=== PATIENT | female | born 1980 | race Caucasian/White ===

== ENCOUNTER 2017-11-16 05:38 | Day surgery (SDC) | payer OTHER ==
[2017-11-16] MEDS ORDERED: LACTATED RINGER'S 1,000 ML IV* (06:00)
[2017-11-16] MEDS ORDERED: CEFAZOLIN 2 GM/50 ML (PMX) 50 ML IVPB (06:00)
[2017-11-16] MEDS ORDERED: LIDOCAINE 2% (SDV) 5 ML INJ (07:32)
[2017-11-16] MEDS ORDERED: MEPERIDINE 100 MG INJ (07:32)
[2017-11-16] MEDS ORDERED: ONDANSETRON 4 MG INJ (07:32)
[2017-11-16] MEDS ORDERED: CEFAZOLIN 1 GM INJ (07:32)
[2017-11-16] MEDS ORDERED: PROPOFOL 20 ML (07:32)
[2017-11-16] MEDS ORDERED: METOCLOPRAMIDE 10 MG INJ (07:33)
[2017-11-16] MEDS ORDERED: FENTAnyl 50 MCG/ML VIAL (09:17)
[2017-11-16] MEDS: FENTAnyl 50 MCG/ML VIAL IV (09:20)
[2017-11-16] MEDS ORDERED: ONDANSETRON 4 MG INJ IV (09:30)
[2017-11-16] MEDS ORDERED: FENTAnyl 50 MCG/ML VIAL IV ×2 (09:30)
[2017-11-16] MEDS ORDERED: MIDAZOLAM 1 MG/ML 2 ML INJ IV (09:30)
[2017-11-16] MEDS ORDERED: METOCLOPRAMIDE 10 MG INJ IV (09:30)
[2017-11-16] MEDS ORDERED: MEPERIDINE 25 MG INJ IV (09:30)
[2017-11-16] MEDS ORDERED: hydrALAzine 20 MG INJ IV (09:30)
[2017-11-16] MEDS ORDERED: OXYCODONE/ACETAMINOPHEN (5/325) TAB PO (09:30)
[2017-11-16] MEDS ORDERED: EPHEDrine SULFATE 50 MG/5 ML SYG IV (09:30)
[2017-11-16] MEDS ORDERED: LABETALOL HCL 20MG INJ IV (09:30)
[2017-11-16] MEDS ORDERED: DIPHENHYDRAMINE 50 MG INJ IV (09:30)
[2017-11-16] MEDS: OXYCODONE/ACETAMINOPHEN (5/325) TAB PO (09:54)
== END 2017-11-16 10:53 | disposition home or self-care (01) ==
LOC: SDS 05:38
DX: N92.1 Excessive and frequent menstruation with irregular cycle (principal)
CPT/HCPCS: 58563